=== PATIENT | male | born 1985 | race Caucasian/White ===

== ENCOUNTER 2018-04-22 06:46 | Emergency (ER) | payer MEDICAID ==
[2018-04-22] MEDS ORDERED: KETOROLAC 30 MG/ML VIAL IVP STA (07:04)
--- NOTE | 2018-04-22 07:15 | ED Physician Documentation ---
PD HPI UPPER EXT INJURY - Stated complaint Stated Complaint: RT SHOULDER PX - Chief complaint Chief Complaint: Ext Problem - History obtained from History obtained from: Patient - History of Present Illness Location: Right, Shoulder Timing - onset: Today Worsened by: Moving Similar symptoms before: Diagnosis (Prior history of right shoulder dislocations.) - Additonal information Additional information: The patient is a 32-year-old right-hand L who presents with dislocation of his right shoulder. He states it happened when he rolled over in bed this morning. He denies any traumatic injury. He has a history of numerous right shoulder dislocations in the past. He has been able to reduce it on his own on a few of those occasions. Review of Systems Constitutional: denies: Fever Nose: denies: Congestion Cardiac: denies: Chest pain / pressure Respiratory: denies: Dyspnea GI: denies: Nausea, Vomiting Musculoskeletal: reports: Joint pain (right shoulder) Neurologic: denies: Focal weakness, Numbness PD PAST MEDICAL HISTORY - Past Medical History Endocrine/Autoimmune: None Musculoskeletal: Other (recurrent right shoulder dislocations) - Allergies Allergies/Adverse Reactions: Allergies Allergy/AdvReac Type Severity Reaction Status Date / Time No Known Drug Allergies Allergy Verified 04/22/18 07:06 - Social History Additional Social History: Visiting here from [place]. PD ED PE NORMAL - Vitals Vital signs reviewed: Yes (normal) - General General: Alert and oriented X 3, Well developed/nourished - HEENT HEENT: Atraumatic - Neck Neck: No bony TTP - Cardiac Cardiac: RRR - Respiratory Respiratory: No respiratory distress - Derm Derm: No rash - Extremities Extremities: Other (There is an anterior bulge at the right shoulder, with a dimple under the acromion process, consistent with anterior shoulder dislocation. Distal neurovascular is intact.) - Neuro Neuro: Alert and oriented X 3, No motor deficit, No sensory deficit Results - Vitals Vitals: Vital Signs - 24 hr 04/22/18 04/22/18 04/22/18 06:55 07:59 08:02 Temperature 36.7 C Heart Rate 86 90 103 H Respiratory 18 12 16 Rate Blood Pressure 132/78 H 119/68 O2 Saturation 96 97 04/22/18 04/22/18 08:43 09:18 Temperature Heart Rate 86 78 Respiratory 14 14 Rate Blood Pressure 110/60 117/61 O2 Saturation 98 99 Oxygen O2 Source Room air - Rads (name of study) Right shoulder Radiology: Prelim report reviewed, EMP read contemporaneously, See rad report (Anterior inferior glenohumeral dislocation evident. No acute fracture line seen.) Post-reduction right shoulder Radiology: Prelim report reviewed, EMP read contemporaneously, See rad report (Interval reduction of glenohumeral dislocation. Alignment is normal. 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 This is a recurrent shoulder dislocation based on his history. X- ray confirms anterior shoulder dislocation. Treatment in the emergency department included attempt at shoulder reduction without procedural sedation, but that was unsuccessful. Subsequently shoulder was able to be reduced under conscious sedation using propofol 60 mg, Ativan 1 mg, and fentanyl 50 mcg. Postreduction x-ray reveals good reduction, with Hill- Sachs deformity noted. An arm sling was applied. 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 Departure - Departure Disposition: 01 Home, Self Care Clinical Impression: Anterior shoulder dislocation Qualifiers: Encounter type: initial encounter Laterality: right Qualified Code(s): S43.014A - Anterior dislocation of right humerus, initial encounter Condition: Stable Instructions: ED Dislocation Shoulder Redu Comments: You can apply ice pack to your shoulder intermittently for the next 2 or 3 days. Wear the arm sling for comfort. Avoid raising your arm over your head for about 3 weeks. You can use ibuprofen, up to 800 mg 3 times daily if needed for discomfort. Return to the emerge department if you develop recurrent dislocation, or otherwise worsening symptoms. Discharge Date/Time: 04/22/18 10:34
--- NOTE | 2018-04-22 07:28 | XRAY Report ---
Reason: shoulder dislocation Procedure Date: 04/22/2018 Accession Number: [id number] / [id number] Procedure: XR - Shoulder 2 View RT CPT Code: FULL RESULT: EXAM: RIGHT SHOULDER RADIOGRAPHY EXAM DATE: 04/22/2018 07:21 AM. CLINICAL HISTORY: Shoulder dislocation. COMPARISON: None. TECHNIQUE: 2 views. FINDINGS: Bones: No fracture lines are evident. Joints: Anterior and inferior glenohumeral dislocation is seen. AC alignment appears normal. Soft tissues: Soft tissue swelling at the shoulder. IMPRESSION: 1. Anterior inferior glenohumeral dislocation evident. No acute fracture line seen. [facility]
[2018-04-22] MEDS ORDERED: fentaNYL 100 MCG/2 ML VIAL IVP STA (07:33)
[2018-04-22] MEDS ORDERED: PROPOFOL 200 MG/20 ML VIAL IVP STA (07:49)
[2018-04-22] MEDS ORDERED: LORazepam 2 MG/ML VIAL IVP STA (07:50)
--- NOTE | 2018-04-22 08:56 | XRAY Report ---
Reason: Post shoulder reduction. Procedure Date: 04/22/2018 Accession Number: [id number] / [id number] Procedure: XR - Shoulder 2 View RT CPT Code: FULL RESULT: EXAM: RIGHT SHOULDER RADIOGRAPHY EXAM DATE: 04/22/2018 08:31 AM. CLINICAL HISTORY: Post shoulder reduction. COMPARISON: SHOULDER 2 VIEW RT 04/22/2018 7:07 AM. TECHNIQUE: 2 views. FINDINGS: Bones: There is a Hill-Sachs deformity of the humeral head. The other visualized bones appear intact. Joints: There has been interval reduction of the previously seen anterior glenohumeral dislocation. Glenohumeral and acromioclavicular joints are normally aligned. Soft tissues: The visualized hemithorax is unremarkable. No soft tissue swelling. IMPRESSION: 1. Interval reduction of glenohumeral dislocation. Alignment is normal. 2. Hill-Sachs deformity of the humeral head. RAD[facility]
[2018-04-22 09:19] VITALS: BP 117/61
--- NOTE | 2018-05-05 08:41 | ED Physician Documentation ---
ED Addendum - Addendum Addendum: 05/05/18 08:40 This addendum is to report the duration of procedural sedation for shoulder reduction on 04/22/18 was 15 minutes.
== END 2018-04-22 10:34 | disposition home or self-care (01) ==
LOC: ED 06:46
DX: M24.411 Recurrent dislocation, right shoulder (principal)
CPT/HCPCS: 23650; 73030; 94770; 96374; 99152; 99283; 99284; J2060

== ENCOUNTER 2018-05-02 01:01 | Outpatient (CLI) | payer MEDICAID | END 2018-05-02 01:02 | disposition critical access hospital (66) | LOC: EMS 01:01 | PROVIDERS: ATTEND Surgery | DX: M25.512 Pain in left shoulder (principal) | CPT/HCPCS: A0425; A0429 ==

== ENCOUNTER 2018-05-02 01:27 | Emergency (ER) | payer MEDICAID ==
[2018-05-02] MEDS ORDERED: fentaNYL 100 MCG/2 ML VIAL IVP STA (01:39)
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
--- NOTE | 2018-05-02 02:16 | XRAY Report ---
Reason: dislocation Procedure Date: 05/02/2018 Accession Number: [id number] / [id number] Procedure: XR - Shoulder 3 View RT CPT Code: FULL RESULT: EXAM: RIGHT SHOULDER RADIOGRAPHY EXAM DATE: 05/02/2018 01:50 AM. CLINICAL HISTORY: Dislocation COMPARISON: SHOULDER 2 VIEW RT 04/22/2018 8:16 AM SHOULDER 2 VIEW RT 04/22/2018 7:07 AM. TECHNIQUE: 3 views. FINDINGS: Bones: Normal. No fracture or bone lesion. Joints: Anterior humeral head dislocation from the glenoid. Soft tissues: The visualized hemithorax is unremarkable. No soft tissue swelling. IMPRESSION: Anterior shoulder dislocation. [facility]
[2018-05-02] MEDS ORDERED: KETAMINE 500 MG/10 ML VIAL IVP STA (02:43)
[2018-05-02] MEDS ORDERED: PROPOFOL 200 MG/20 ML VIAL IVP STA (02:44)
--- NOTE | 2018-05-02 03:45 | XRAY Report ---
Reason: post reduction Procedure Date: 05/02/2018 Accession Number: [id number] / [id number] Procedure: XR - Shoulder 2 View RT CPT Code: FULL RESULT: EXAM: RIGHT SHOULDER RADIOGRAPHY EXAM DATE: 05/02/2018 03:38 AM. CLINICAL HISTORY: Post reduction COMPARISON: SHOULDER 3 VIEW RT 05/02/2018 1:50 AM SHOULDER 2 VIEW RT 04/22/2018 8:16 AM. TECHNIQUE: 2 views. FINDINGS: Bones: Stable Hill-Sachs deformity in the humeral head. Joints: Reduction of dislocation. Soft tissues: The visualized hemithorax is unremarkable. No soft tissue swelling. IMPRESSION: Reduction of dislocation. No new fracture. RADIA
[2018-05-02 04:04] VITALS: BP 137/79
== END 2018-05-02 05:32 | disposition home or self-care (01) ==
LOC: EDUNIT# → ED 01:27
DX: M24.411 Recurrent dislocation, right shoulder (principal)
CPT/HCPCS: 23650; 96374; 99152; 99283; 99284